=== PATIENT | female | born 1985 | race Caucasian/White ===

== ENCOUNTER 2017-03-13 23:47 | Emergency (ER) | payer OTHER ==
--- NOTE | 2017-03-14 02:40 | ED Physician Documentation ---
PD HPI DYSPNEA - Stated complaint Stated Complaint: SHORTNESS OF BREATH - Chief complaint Chief Complaint: General - History obtained from History obtained from: Patient - History of Present Illness Timing - onset: How many days ago (5) Timing - duration: Days (5) Timing - details: Gradual onset Associated symptoms: Fever (Tmax 102), Cough Recently seen: Not recently seen - Additional information Additional information: c/o 5 days of fever, chills, diaphoresis, cough, sore throat, sinus congestion Review of Systems Constitutional: reports: Fever, Chills, Sweats Throat: reports: Sore throat Cardiac: reports: Reviewed and negative Respiratory: reports: Dyspnea, Cough GI: reports: Reviewed and negative PD PAST MEDICAL HISTORY - Past Medical History Respiratory: Asthma - Past Surgical History Past Surgical History: No - Present Medications Home Medications: Ambulatory Orders Medication Instructions Recorded Confirmed Albuterol [Ventolin Hfa] 2 puffs INH Q8HR PRN 02/04/14 02/04/14 Fluticasone [Flonase] 2 sprays OWEN DAILY #0 bottle 02/04/14 Sertraline HCl [Zoloft] 50 mg PO DAILY #30 tablet 02/04/14 - Allergies Allergies/Adverse Reactions: Allergies Allergy/AdvReac Type Severity Reaction Status Date / Time amoxicillin [Amoxicillin] AdvReac Unknown Unknown Verified 02/04/14 17:11 Latex, Natural Rubber AdvReac Unknown Unknown Verified 02/04/14 17:11 Penicillins AdvReac Unknown Unknown Verified 02/04/14 17:11 - Social History Does the pt smoke?: No Smoking Status: Never smoker Does the pt drink ETOH?: No Does the pt have substance abuse?: No - Immunizations Immunizations are current?: Yes - POLST Patient has POLST: No PD ED PE NORMAL - Vitals Vital signs reviewed: Yes - General General: Alert and oriented X 3, No acute distress, Well developed/nourished - HEENT HEENT: Moist mucous membranes PD ED PE EXPANDED - HEENT HEENT: Pharyngeal erythema, Tonsillar exudate (despite h/o T+A, there appears to be large amount of left tonsillar tissue and this is erythematous with exudate) Results - Vitals Vitals: Oxygen O2 Source Room air - Labs Labs: Laboratory Tests 03/14/17 02:59 Group A Strep Rapid Negative - Rads (name of study) chest xray Radiology: Prelim report reviewed, See rad report PD MEDICAL DECISION MAKING - ED course Complexity details: reviewed results, re-evaluated patient, considered differential, d/w patient Departure - Departure Disposition: 01 Home, Self Care Clinical Impression: Bronchitis Pharyngitis Qualifiers: Pharyngitis/tonsillitis etiology: unspecified etiology Qualified Code(s): J02.9 - Acute pharyngitis, unspecified Condition: Good Instructions: ED Bronchitis Asthmatic, ED Pharyngitis Viral Report Pending Follow-Up: [facility] [Provider Group] [facility] [Provider Group] Discharge Date/Time: 03/14/17 05:15
[2017-03-14] MEDS ORDERED: ALBUTEROL NEB 2.5 MG/3 ML INH STA (02:59)
[2017-03-14] MEDS ORDERED: ALBUTEROL NEB 2.5 MG/3 ML INH ONE (03:05)
[2017-03-14 03:17] LABS: RAPID STREP SCREEN REAGENT QC YELLOW (YELLOW)
[2017-03-14] MEDS ORDERED: DEXAMETHASONE 10 MG/ML VIAL PO STA (03:21)
[2017-03-14] MEDS ORDERED: DEXAMETHASONE 10 MG/ML VIAL ONE (03:24)
[2017-03-14] MEDS ORDERED: CHERRY SYRUP 10 ML UDC PO ONE (03:24)
[2017-03-14] MEDS ORDERED: IBUPROFEN 800 MG TABLET PO STA (03:56)
[2017-03-14] MEDS ORDERED: IBUPROFEN 800 MG TABLET PO ONE (04:11)
--- NOTE | 2017-03-14 04:17 | XRAY Preliminary Report ---
Exam: XR Chest 2 View PA/LAT IMPRESSION: 1. No acute abnormality seen in the chest. [facility] SITE ID: [id number]
--- NOTE | 2017-03-14 04:20 | XRAY Report ---
EXAM: CHEST RADIOGRAPHY EXAM DATE: 03/14/2017 04:01 AM. CLINICAL HISTORY: Cough, dyspnea. COMPARISON: None. TECHNIQUE: 2 views. FINDINGS: Lungs/Pleura: No focal opacities evident. No pleural effusion. No pneumothorax. Normal volumes. Mediastinum: Heart and mediastinal contours are unremarkable. Other: None. IMPRESSION: 1. No acute abnormality seen in the chest. [facility] Referring Provider Line: [phone] SITE ID: [id number]
[2017-03-14] MEDS ORDERED: ALBUTEROL 8 GM INHALER INH STA (04:59)
[2017-03-14] MEDS ORDERED: ALBUTEROL 8 GM INHALER INH ONE (05:08)
[2017-03-14 05:12] VITALS: BP 128/80
== END 2017-03-14 05:15 | disposition home or self-care (01) ==
LOC: ED 23:47
DX: J40 Bronchitis, not specified as acute or chronic (principal); J02.9 Acute pharyngitis, unspecified
CPT/HCPCS: 71020; 87070; 87430; 94640; 94664; 99283; A9270; J7613

== ENCOUNTER 2017-03-21 21:39 | Emergency (ER) | payer OTHER ==
[2017-03-21] MEDS ORDERED: DOXYCYCLINE 100 MG TABLET PO STA (22:13)
[2017-03-21] MEDS ORDERED: ALBUTEROL NEB 2.5 MG/3 ML INH STA (22:13)
[2017-03-21] MEDS ORDERED: DEXAMETHASONE 10 MG/ML VIAL PO STA (22:13)
[2017-03-21] MEDS ORDERED: ALBUTEROL NEB 2.5 MG/3 ML INH ONE (22:18)
--- NOTE | 2017-03-21 22:20 | ED Physician Documentation ---
PD HPI HEENT - Stated complaint Stated Complaint: R EAR PX - Chief complaint Chief Complaint: Heent - History obtained from History obtained from: Patient - History of Present Illness Timing - onset: Other (2 weeks increased wheezing with URI sx and cough, had increasing R ear pain and severe pain in R ear after a pop tonight without drainage but with decreased hearing.) Review of Systems Constitutional: denies: Fever, Chills Throat: denies: Dental pain / toothache, Sore throat Cardiac: denies: Chest pain / pressure, Palpitations PD PAST MEDICAL HISTORY - Past Medical History Past Medical History: No Respiratory: Asthma - Past Surgical History Past Surgical History: No - Present Medications Home Medications: Ambulatory Orders Medication Instructions Recorded Confirmed Albuterol [Ventolin Hfa] 2 puffs INH Q8HR PRN 02/04/14 02/04/14 Fluticasone [Flonase] 2 sprays OWEN DAILY #0 bottle 02/04/14 Sertraline HCl [Zoloft] 50 mg PO DAILY #30 tablet 02/04/14 Doxycycline Hyclate 100 mg PO BID #20 tablet 03/21/17 - Allergies Allergies/Adverse Reactions: Allergies Allergy/AdvReac Type Severity Reaction Status Date / Time amoxicillin [Amoxicillin] AdvReac Unknown Unknown Verified 03/21/17 21:44 Latex, Natural Rubber AdvReac Unknown Unknown Verified 03/21/17 21:44 Penicillins AdvReac Unknown Unknown Verified 03/21/17 21:44 - Social History Does the pt smoke?: No Smoking Status: Never smoker Does the pt drink ETOH?: No Does the pt have substance abuse?: No - Immunizations Immunizations are current?: Yes - POLST Patient has POLST: No PD ED PE NORMAL - Vitals Vital signs reviewed: Yes - General General: Alert and oriented X 3, No acute distress - HEENT HEENT: Pharynx benign, Other (ROM but no obvious perf) - Neck Neck: Supple, no meningeal sign, No bony TTP - Cardiac Cardiac: RRR, No murmur - Respiratory Respiratory: Other (mildly diminished and exp wheezes) - Abdomen Abdomen: Non tender - Derm Derm: Normal color - Extremities Extremities: No edema, No calf tenderness / cord - Neuro Neuro: Alert and oriented X 3 - Psych Psych: Normal mood, Normal affect Results - Vitals Vitals: Vital Signs - 24 hr 03/21/17 21:44 Temperature 37.3 C Heart Rate 95 Respiratory 16 Rate Blood Pressure 127/90 H O2 Saturation 100 Oxygen O2 Source Room air Departure - Departure Disposition: 01 Home, Self Care Clinical Impression: ROM (right otitis media) Qualifiers: Otitis media type: suppurative Chronicity: acute Recurrence: not specified as recurrent Spontaneous tympanic membrane rupture: without spontaneous rupture Qualified Code(s): H66.001 - Acute suppurative otitis media without spontaneous rupture of ear drum, right ear Condition: Good Record reviewed to determine appropriate education?: Yes Instructions: ED Otitis Media Acute Adult Prescriptions: Doxycycline Hyclate 100 mg PO BID #20 tablet Comments: Call your doctor to arrange a follow up appointment. Make the next available appointment. In the interim return anytime if worse or if new symptoms develop. Your blood pressure was elevated today on check in to the emergency department. This does not mean that you have hypertension, it is a common phenomenon to check into the emergency department and have elevated blood pressure. I recommend that you see your primary care physician within the week to have it rechecked when you're feeling better.
[2017-03-21] MEDS ORDERED: DEXAMETHASONE 10 MG/ML VIAL ONE (22:25)
[2017-03-21] MEDS ORDERED: CHERRY SYRUP 10 ML UDC PO ONE (22:25)
[2017-03-21] MEDS ORDERED: DOXYCYCLINE 100 MG TABLET PO ONE (22:25)
[2017-03-21 22:57] VITALS: BP 127/84
== END 2017-03-21 22:58 | disposition home or self-care (01) ==
LOC: ED 21:39
DX: H66.001 Acute suppurative otitis media without spontaneous rupture of ear drum, right ear (principal); R03.0 Elevated blood-pressure reading, without diagnosis of hypertension
CPT/HCPCS: 94640; 99283; A9270; J7613

== ENCOUNTER 2017-05-13 20:11 | Emergency (ER) | payer OTHER ==
[2017-05-13 20:33] VITALS: BP 110/81
[2017-05-13] MEDS ORDERED: BACITRACIN OINT TOP STA (20:58)
[2017-05-13] MEDS ORDERED: BACITRACIN OINT TOP ONE (21:13)
--- NOTE | 2017-05-13 21:47 | ED Physician Documentation ---
PD HPI Fall - Stated complaint Stated Complaint: L KNEE/ R ANKLE PX - Chief complaint Chief Complaint: Ext Problem - History obtained from History obtained from: Patient - History of Present Illness Mechanism of injury: Tripped Fall distance: Standing position Where injury occurred: Street Timing - onset: How many hours ago (1) Injury(ies) location: Right Lower Extremity, Left Lower Extremity Associated symptoms: No: LOC, Nausea / vomiting Similar symptoms before: Has not had sx before - Additional information Additional information: The patient is a 31-year-old female who fell on uneven pavement about one hour prior to arrival, twisting her right ankle. She presents now with pain at the lateral aspect of her right ankle. She also impacted her left knee, and reports wound to her knee. She denies any other injuries. She has been ambulatory since the incident occurred. Review of Systems Constitutional: denies: Fever Nose: denies: Congestion Respiratory: denies: Dyspnea GI: denies: Nausea, Vomiting Skin: reports: Laceration (s) Musculoskeletal: reports: Joint swelling (right ankle), Pain with weight bearing. denies: Back pain Neurologic: denies: Focal weakness, Numbness, Head injury PD PAST MEDICAL HISTORY - Past Medical History Respiratory: Asthma Endocrine/Autoimmune: None - Past Surgical History Past Surgical History: No - Present Medications Home Medications: Ambulatory Orders Medication Instructions Recorded Confirmed Albuterol [Ventolin Hfa] 2 puffs INH Q8HR PRN 02/04/14 02/04/14 Fluticasone [Flonase] 2 sprays OWEN DAILY #0 bottle 02/04/14 Sertraline HCl [Zoloft] 50 mg PO DAILY #30 tablet 02/04/14 Doxycycline Hyclate 100 mg PO BID #20 tablet 03/21/17 HYDROcod/ACETAM 5/325 [[place] 5/325] 1 - 2 ea PO Q6H PRN #15 tablet 05/13/17 - Allergies Allergies/Adverse Reactions: Allergies Allergy/AdvReac Type Severity Reaction Status Date / Time amoxicillin [Amoxicillin] AdvReac Unknown Unknown Verified 05/13/17 20:33 Latex, Natural Rubber AdvReac Unknown Unknown Verified 05/13/17 20:33 Penicillins AdvReac Unknown Unknown Verified 05/13/17 20:33 - Social History Does the pt smoke?: No Smoking Status: Never smoker Does the pt drink ETOH?: No Does the pt have substance abuse?: No - Immunizations Immunizations are current?: Yes - POLST Patient has POLST: No PD ED PE NORMAL - Vitals Vital signs reviewed: Yes (normal) - General General: Alert and oriented X 3, Well developed/nourished, Other (overweight) - HEENT HEENT: Atraumatic, EOMI - Neck Neck: No bony TTP - Cardiac Cardiac: RRR - Respiratory Respiratory: No respiratory distress - Abdomen Abdomen: Soft, Non tender - Back Back: No spinal TTP - Derm Derm: No rash - Extremities Extremities: No calf tenderness / cord, Other (There is tenderness to palpation over the posterior aspect of the right lateral malleolus. There is no tenderness at the posterior malleolus, medial malleolus, fifth metatarsal base, or the proximal fibula of the right lower extremity. Distal neurovascular is intact. At the infrapatellar aspect of the left knee is a 1.5 cm jagged laceration, with surrounding abrasions. She has full range of motion of the knee, and no ligamentous instability detected. Distal neurovascular is intact.) Results - Vitals Vitals: Oxygen O2 Source Room air - Rads (name of study) right ankle Radiology: Prelim report reviewed, EMP read contemporaneously, See rad report ( Lateral soft tissue swelling. No acute osseous abnormality.) Procedures - Laceration (location) left knee Length in cm: 1.5 Wound type: Irregular Neurovascular status: Sensory intact, Motor intact, Vascular intact Anesthesia: Marcaine 0.25% with epi Wound Preparation: Hibiclens Skin layer closure: Nylon, Interrupted, Size #-0 - enter number (5), Sutures - enter # (3) Other: Patient tolerated well, No complications, Neurovascular intact, Dressing applied, Tetanus UTD Complexity: Simple - Splint (location) right ankle Splint applied by: Tech Type of splint: Ankle airsplint Other: Patient tolerated well, No complications, Neurovascular intact, Crutches provided PD MEDICAL DECISION MAKING - ED course Complexity details: reviewed results, re-evaluated patient, considered differential, d/w patient, d/w family ED course: Patient's presentation is significant for right ankle sprain. X-ray reveals no evidence of fracture or dislocation. She also has a 1.5 cm laceration at the prepatellar aspect of the left knee. Treatment in the emergency department included administration of an ankle air splint. Crutches were dispensed. The wound was repaired with 5-0 nylon simple sutures after thorough cleaning. Antibiotic ointment and gauze dressing was applied. I discussed with her the expected course of healing, wound care and timing for suture removal, as well as potentially worrisome signs or symptoms that should prompt reevaluation in the emergency department. Departure - Departure Disposition: 01 Home, Self Care Clinical Impression: Ankle sprain Qualifiers: Encounter type: initial encounter Involved ligament of ankle: calcaneofibular ligament Laterality: left Qualified Code(s): S93.412A - Sprain of calcaneofibular ligament of left ankle, initial encounter Laceration of lower extremity Qualifiers: Encounter type: initial encounter Laterality: left Qualified Code(s): S81.812A - Laceration without foreign body, left lower leg, initial encounter Condition: Stable Instructions: ED Sprain Ankle W X Ray, ED Laceration Ext Sutr Stap Tape Follow-Up: Lani Vazquez PA-C [Primary Care Provider] - Prescriptions: HYDROcod/ACETAM 5/325 [[place] 5/325] 1 - 2 ea PO Q6H PRN #15 tablet PRN Reason: Pain Comments: 1. Keep your right foot elevated as much the time as possible. 2. Apply icepack to the sore area intermittently for the next 3 days. 3. You can use Tylenol or ibuprofen as needed for discomfort. 4. Keep the wound on the left knee clean, and apply antibiotic ointment daily. 5. Followup for suture removal in about 12 days. 6. Followup sooner if you develop any sign of infection, or otherwise worsening symptoms. Discharge Date/Time: 05/13/17 22:14
--- NOTE | 2017-05-13 21:50 | XRAY Preliminary Report ---
Exam: XR Ankle 3 View RT IMPRESSION: Lateral soft tissue swelling. No acute osseous abnormality. [facility] SITE ID: [id number]
--- NOTE | 2017-05-13 21:52 | XRAY Report ---
EXAM: RIGHT ANKLE RADIOGRAPHY EXAM DATE: 05/13/2017 09:29 PM. CLINICAL HISTORY: Right ankle injury. Fall. Pain. COMPARISON: None. TECHNIQUE: 3 views. FINDINGS: Bones: Normal. No fractures or bone lesions. Joints: Normal. No effusion. No subluxations. The ankle mortise is normally aligned. Soft Tissues: Lateral soft tissue swelling. IMPRESSION: Lateral soft tissue swelling. No acute osseous abnormality. [facility] Referring Provider Line: [phone] SITE ID: [id number]
== END 2017-05-13 22:14 | disposition home or self-care (01) ==
LOC: ED 20:11
DX: S93.411A Sprain of calcaneofibular ligament of right ankle, initial encounter (principal); S81.012A Laceration without foreign body, left knee, initial encounter; W01.0XXA Fall on same level from slipping, tripping and stumbling without subsequent striking against object, initial encounter; Y92.410 Unspecified street and highway as the place of occurrence of the external cause
CPT/HCPCS: 12001; 73610; 99283; A9270

== ENCOUNTER 2017-10-08 14:31 | Outpatient (CLI) | payer OTHER | END 2017-10-08 14:32 | disposition home or self-care (01) | LOC: SC 14:31 | PROVIDERS: ATTEND Internal Medicine Pulmonary Disease | DX: G47.10 Hypersomnia, unspecified (principal); R51 Headache; E66.01 Morbid (severe) obesity due to excess calories; Z68.42 Body mass index [BMI] 45.0-49.9, adult; G47.8 Other sleep disorders | CPT/HCPCS: 99203; 99212 ==

== ENCOUNTER 2017-11-24 19:27 | Outpatient (CLI) | payer OTHER | END 2017-11-24 19:28 | disposition home or self-care (01) | LOC: SC 19:27 | PROVIDERS: ATTEND Internal Medicine Pulmonary Disease | DX: G47.33 Obstructive sleep apnea (adult) (pediatric) (principal) | CPT/HCPCS: 95810 ==

== ENCOUNTER 2017-12-14 13:43 | Emergency (ER) | payer OTHER ==
--- NOTE | 2017-12-14 15:33 | ED Physician Documentation ---
History of Present Illness - Stated complaint Stated Complaint: FLU LIKE SX - Chief complaint Chief Complaint: General - History obtained from History obtained from: Patient - History of Present Illness Timing: How many hours ago (18) Pain level max: 0 Pain level now: 0 Improved by: nothing Worsened by: nothing - Additonal information Additional information: Patient is a 32-year-old female presents to the emergency department stating she has not been feeling well for the past 18 hours. Subjective fevers, muscle aches. Has been using her inhaler at home. She has had cough, rhinorrhea, congestion and sore throat. Denies any possibility of as she has had a hysterectomy. Review of Systems Constitutional: reports: Fever (subjective), Chills Nose: reports: Rhinorrhea / runny nose, Congestion Throat: reports: Sore throat Respiratory: reports: Cough GI: reports: Nausea, Diarrhea (once). denies: Abdominal Pain, Vomiting Skin: denies: Rash Musculoskeletal: denies: Neck pain, Back pain Neurologic: denies: Focal weakness, Numbness, Headache PD PAST MEDICAL HISTORY - Past Medical History Past Medical History: Yes Respiratory: Asthma Endocrine/Autoimmune: None Psych: Depression, Anxiety Other Past Medical History: PCOS - Past Surgical History Past Surgical History: No General: Cholecystectomy /[employer]: section, Tubal ligation, Hysterectomy, Oophrectomy HEENT: Tonsil/Adenoidectomy - Present Medications Home Medications: Ambulatory Orders Medication Instructions Recorded Confirmed Albuterol Sulf [Ventolin Hfa 1 - 2 puffs INH Q4HR PRN #1 inhaler 12/14/17 Inhaler] Benzonatate [Tessalon Perle] 100 - 200 mg PO TID PRN #30 capsule 12/14/17 Cetirizine HCl/Pseudoephedrine 1 each PO BID PRN #30 tab.er.12h 12/14/17 [Zyrtec-D Tablet] Citalopram [CeleXA] 10 mg PO ONCE 12/14/17 12/14/17 Ondansetron Odt [Zofran] 4 mg TL Q6H PRN #10 tablet 12/14/17 lamoTRIgine [LaMICtal] 200 mg PO DAILY 12/14/17 12/14/17 - Allergies Allergies/Adverse Reactions: Allergies Allergy/AdvReac Type Severity Reaction Status Date / Time amoxicillin [Amoxicillin] AdvReac Unknown Unknown Verified 12/14/17 13:48 Latex, Natural Rubber AdvReac Unknown Unknown Verified 12/14/17 13:48 Penicillins AdvReac Unknown Unknown Verified 12/14/17 13:48 - Social History Does the pt smoke?: No Smoking Status: Never smoker Does the pt drink ETOH?: No Does the pt have substance abuse?: No - Immunizations Immunizations are current?: Yes - POLST Patient has POLST: No PD ED PE NORMAL - Vitals Vital signs reviewed: Yes - General General: Alert and oriented X 3, No acute distress, Well developed/nourished - HEENT HEENT: PERRL, Ears normal, Moist mucous membranes, Pharynx benign - Neck Neck: Supple, no meningeal sign - Cardiac Cardiac: RRR, Strong equal pulses - Respiratory Respiratory: No respiratory distress, Other (wheezing B) - Abdomen Abdomen: Soft, Non tender, Non distended - Derm Derm: Warm and dry, No rash - Extremities Extremities: No edema, No calf tenderness / cord - Neuro Neuro: Alert and oriented X 3 - Psych Psych: Normal mood, Normal affect Results - Vitals Vitals: Vital Signs - 24 hr 12/14/17 12/14/17 13:46 16:58 Temperature 36.7 C 38.5 C H Heart Rate 111 H 107 H Respiratory 16 18 Rate Blood Pressure 131/92 H 102/61 O2 Saturation 96 95 Oxygen O2 Source Room air - Labs Labs: Laboratory Tests 12/14/17 15:30 Influenza A (Rapid) Negative Influenza B (Rapid) Negative Influenza Types A,B Ag - - Rads (name of study) cxr Radiology: Prelim report reviewed, EMP read contemporaneously, See rad report ( Normal 2-view chest radiography. ) PD MEDICAL DECISION MAKING - ED course Complexity details: reviewed results, re-evaluated patient, considered differential, d/w patient ED course: Patient is a 32-year-old female who presents to the emergency department what appears to be a viral syndrome. She is well-appearing, nontoxic. No acute findings on chest x-ray. Has an inhaler for home. She states she would need a refill. Will prescribe this for her. Also place her on cough medication and decongestants. Influenza is negative. Patient counseled regarding signs and symptoms for which I believe and urgent re-evaluation would be necessary. Patient with good understanding of and agreement to plan and is comfortable going home at this time This document was made in part using voice recognition software. While efforts are made to proofread this document, sound alike and grammatical errors may occur. Departure - Departure Disposition: 01 Home, Self Care Clinical Impression: Viral syndrome Condition: Good Instructions: ED Viral Syndrome Follow-Up: Lani Vazquez PA-C [Primary Care Provider] - Within 1 week (if not better) Prescriptions: Albuterol Sulf [Ventolin Hfa Inhaler] 1 - 2 puffs INH Q4HR PRN #1 inhaler PRN Reason: Shortness Of Air/Wheezing Benzonatate [Tessalon Perle] 100 - 200 mg PO TID PRN #30 capsule PRN Reason: Cough Cetirizine HCl/Pseudoephedrine [Zyrtec-D Tablet] 1 each PO BID PRN #30 tab.er.12h PRN Reason: Nasal Congestion Ondansetron Odt [Zofran] 4 mg TL Q6H PRN #10 tablet PRN Reason: Nausea / Vomiting Comments: Drink plenty of fluids and rest. Return if you worsen. This will likely last for 2 weeks. Discharge Date/Time: 12/14/17 16:58
--- NOTE | 2017-12-14 15:46 | XRAY Preliminary Report ---
Exam: XR CHEST 2 VIEW X-RAY IMPRESSION: Normal 2-view chest radiography. [facility] SITE ID: [id number]
--- NOTE | 2017-12-14 15:57 | XRAY Report ---
EXAM: CHEST RADIOGRAPHY EXAM DATE: 12/14/2017 03:38 PM. CLINICAL HISTORY: Fever, cough. COMPARISON: 03/14/2017. TECHNIQUE: 2 views. FINDINGS: Lungs/Pleura: No focal opacities evident. No pleural effusion. No pneumothorax. Normal volumes. Mediastinum: Heart and mediastinal contours are unremarkable. Other: None. IMPRESSION: Normal 2-view chest radiography. [facility] Referring Provider Line: [phone] SITE ID: [id number]
[2017-12-14 17:01] VITALS: BP 102/61
== END 2017-12-14 16:58 | disposition home or self-care (01) ==
LOC: ED 13:43
DX: B34.9 Viral infection, unspecified (principal); R05 Cough; R09.81 Nasal congestion
CPT/HCPCS: 71046; 87275; 87276; 99283

== ENCOUNTER 2017-12-18 10:29 | Outpatient (CLI) | payer OTHER | END 2017-12-18 10:30 | disposition home or self-care (01) | LOC: SC 10:29 | PROVIDERS: ATTEND Nurse Practitioner Family | DX: G47.33 Obstructive sleep apnea (adult) (pediatric) (principal) | CPT/HCPCS: 99212; 99214 ==

== ENCOUNTER 2018-03-07 10:18 | Outpatient (CLI) | payer OTHER | END 2018-03-07 10:19 | disposition home or self-care (01) | LOC: SC 10:18 | PROVIDERS: ATTEND Nurse Practitioner Family | DX: G47.33 Obstructive sleep apnea (adult) (pediatric) (principal) | CPT/HCPCS: 99212; 99214 ==

== ENCOUNTER 2018-06-12 15:19 | Outpatient (CLI) | payer OTHER | END 2018-06-12 15:20 | disposition home or self-care (01) | LOC: SC 15:19 | PROVIDERS: ATTEND Nurse Practitioner Family | DX: G47.33 Obstructive sleep apnea (adult) (pediatric) (principal) | CPT/HCPCS: 99212; 99214 ==

== ENCOUNTER 2018-08-15 14:55 | Outpatient (CLI) | payer OTHER | END 2018-08-15 14:56 | disposition home or self-care (01) | LOC: SC 14:55 | PROVIDERS: ATTEND Nurse Practitioner Family | DX: G47.33 Obstructive sleep apnea (adult) (pediatric) (principal) | CPT/HCPCS: 99212; 99214 ==

== ENCOUNTER 2018-10-15 16:00 | Outpatient (CLI) | payer OTHER | END 2018-10-15 16:01 | disposition home or self-care (01) | LOC: SC 16:00 | PROVIDERS: ATTEND Nurse Practitioner Family | DX: G47.33 Obstructive sleep apnea (adult) (pediatric) (principal) | CPT/HCPCS: 99212; 99214 ==

== ENCOUNTER 2018-11-28 10:50 | Outpatient (CLI) | payer OTHER | END 2018-11-28 10:51 | disposition home or self-care (01) | LOC: SC 10:50 | PROVIDERS: ATTEND Nurse Practitioner Family | DX: G47.33 Obstructive sleep apnea (adult) (pediatric) (principal) | CPT/HCPCS: 99212; 99214 ==

== ENCOUNTER 2019-01-09 10:54 | Outpatient (CLI) | payer OTHER | END 2019-01-09 10:55 | disposition home or self-care (01) | LOC: SC 10:54 | PROVIDERS: ATTEND Nurse Practitioner Family | DX: G47.33 Obstructive sleep apnea (adult) (pediatric) (principal) | CPT/HCPCS: 99212; 99213 ==

== ENCOUNTER 2019-03-14 14:37 | Emergency (ER) | payer OTHER ==
[2019-03-14 14:54] VITALS: BP 126/84
--- NOTE | 2019-03-14 15:18 | ED Physician Documentation ---
PD HPI LOWER EXT INJURY - Stated complaint Stated Complaint: R FOOT INJ - Chief complaint Chief Complaint: Ext Problem - History obtained from History obtained from: Patient, Family - History of Present Illness PD HPI LOW EXT INJURY LOCATION: Right, Ankle Type of injury: Twist Where injury occurred: Home Timing - onset: How many hours ago (1) Timing - duration: Hours (1) Timing - details: Abrupt onset Pain level max: 10 Pain level now: 10 Improved by: Rest, Ice, Immobilization Worsened by: Moving, Palpating Associated symptoms: Swelling Contributing factors: No: Anticoagulated, Prior ortho surgery Recently seen: Not recently seen Review of Systems Constitutional: denies: Fever, Chills GI: denies: Vomiting : denies: Now EGA Skin: denies: Rash Musculoskeletal: denies: Neck pain, Back pain PD PAST MEDICAL HISTORY - Past Medical History Past Medical History: Yes Respiratory: Asthma Endocrine/Autoimmune: None Psych: Depression, Anxiety - Past Surgical History Past Surgical History: No General: 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, Tubal ligation, Hysterectomy, Oophrectomy HEENT: Tonsil/Adenoidectomy - Present Medications Home Medications: Ambulatory Orders Medication Instructions Recorded Confirmed Albuterol Sulf [Ventolin Hfa 1 - 2 puffs INH Q4HR PRN #1 inhaler 12/14/17 Inhaler] Benzonatate [Tessalon Perle] 100 - 200 mg PO TID PRN #30 capsule 12/14/17 Cetirizine HCl/Pseudoephedrine 1 each PO BID PRN #30 tab.er.12h 12/14/17 [Zyrtec-D Tablet] Citalopram [CeleXA] 10 mg PO ONCE 12/14/17 12/14/17 Ondansetron Odt [Zofran] 4 mg TL Q6H PRN #10 tablet 12/14/17 lamoTRIgine [LaMICtal] 200 mg PO DAILY 12/14/17 12/14/17 Oxycodone HCl/Acetaminophen 1 - 2 each PO Q6H PRN #20 tablet 03/14/19 [Percocet 5-325 mg Tablet] - Allergies Allergies/Adverse Reactions: Allergies Allergy/AdvReac Type Severity Reaction Status Date / Time amoxicillin [Amoxicillin] AdvReac Unknown Unknown Verified 12/14/17 13:48 Latex, Natural Rubber AdvReac Unknown Unknown Verified 12/14/17 13:48 Penicillins AdvReac Unknown Unknown Verified 12/14/17 13:48 - Social History Does the pt smoke?: No Smoking Status: Never smoker Does the pt drink ETOH?: No Does the pt have substance abuse?: No - Immunizations Immunizations are current?: Yes - POLST Patient has POLST: No PD ED PE NORMAL - Vitals Vital signs reviewed: Yes - General General: Alert and oriented X 3, No acute distress - HEENT HEENT: Moist mucous membranes - Neck Neck: Supple, no meningeal sign - Cardiac Cardiac: RRR - Respiratory Respiratory: No respiratory distress, Clear bilaterally - Derm Derm: Warm and dry - Extremities Extremities: Other (Tender to palpation right distal fibula. Soft tissue swelling present neurovascular intact. Otherwise normal examination of the right foot and ankle.) - Neuro Neuro: Alert and oriented X 3 Results - Vitals Vitals: Vital Signs - 24 hr 03/14/19 14:52 Temperature 36.0 C L Heart Rate 79 Respiratory 18 Rate Blood Pressure 126/84 H O2 Saturation 98 Oxygen O2 Source Room air - Rads (name of study) Right ankle x-ray Radiology: Prelim report reviewed, EMP read contemporaneously, See rad report (Lucio A ankle injury. There is a small fracture through the distal fibula below the level of the syndesmosis. 2. No evidence of dislocation. ) Procedures - Splint (location) R ankle Splint applied by: Physician, Tech Type of splint: Fiberglass, Short leg, Posterior, Stirrup Other: Patient tolerated well, No complications, Neurovascular intact, Crutches provided PD MEDICAL DECISION MAKING - ED course Complexity details: reviewed results, re-evaluated patient, considered differential, d/w patient ED course: Patient with a Lucio a fracture of the distal fibula. Placed in a posterior splint with stirrup. Given crutches. Neurovascularly intact. Patient counseled regarding signs and symptoms for which I believe and urgent re- evaluation would be necessary. Patient with good understanding of and agreement to plan and is comfortable going home at this time This document was made in part using voice recognition software. While efforts are made to proofread this document, sound alike and grammatical errors may occur. Departure - Departure Disposition: 01 Home, Self Care Clinical Impression: Fracture of distal end of right fibula Qualifiers: Encounter type: initial encounter Fracture type: closed Fracture morphology: unspecified fracture morphology Qualified Code(s): S82.831A - Other fracture of upper and lower end of right fibula, initial encounter for closed fracture Condition: Good Instructions: ED Fx Lower Ext Follow-Up: GOGO ESPINOZA [Primary Care Provider] - [facility] [Provider Group] - Within 1 week Prescriptions: Oxycodone HCl/Acetaminophen [Percocet 5-325 mg Tablet] 1 - 2 each PO Q6H PRN #20 tablet PRN Reason: pain Comments: Follow-up with orthopedics in 1 week. Return if you worsen. Do not put any weight on the right lower extremity. Do not drink alcohol or drive while on narcotic pain medicine. Note that many narcotic pain relievers also contain tylenol/acetaminophen. Please ensure that your total dose of acetaminophen from all sources does not exceed 3 grams (3000mg) per day. You may constipated on this medication, take a stool softener such as "Colace" twice a day while you are on it. Also recommend a [id number] laxative such as senna or MiraLAX any day that you do not have a bowel movement. If you received narcotic pain medication in the emergency department, do not drive or operate machinery for the next 24 hours. Discharge Date/Time: 03/14/19 17:18
--- NOTE | 2019-03-14 15:39 | XRAY Report ---
Reason: right ankle injury Procedure Date: 03/14/2019 Accession Number: [id number] / [id number] Procedure: XR - Ankle 3 View RT CPT Code: FULL RESULT: EXAM: RIGHT ANKLE RADIOGRAPHY EXAM DATE: 03/14/2019 03:15 PM. CLINICAL HISTORY: Right ankle injury. COMPARISON: ANKLE 3 VIEW RT 05/13/2017 9:14 PM. TECHNIQUE: 3 views. FINDINGS: Bones: There is a small avulsion fracture through the tip of the distal fibula. Corticated bony foci at the anterior margin of the tibiotalar joint on lateral view probably represent accessory ossicles. Joints: No evidence of dislocation. Soft Tissues: There is diffuse soft tissue swelling. IMPRESSION: 1. Lucio A ankle injury. There is a small fracture through the distal fibula below the level of the syndesmosis. 2. No evidence of dislocation. RADIA
[2019-03-14] MEDS ORDERED: oxyCODONE 5 MG TABLET PO STA (16:03)
== END 2019-03-14 17:18 | disposition home or self-care (01) ==
LOC: ED 14:37
DX: S82.831A Other fracture of upper and lower end of right fibula, initial encounter for closed fracture (principal); X50.1XXA Overexertion from prolonged static or awkward postures, initial encounter; Y93.89 Activity, other specified; Y92.009 Unspecified place in unspecified non-institutional (private) residence as the place of occurrence of the external cause
CPT/HCPCS: 29515; 73610; 99283; A9270

== ENCOUNTER 2023-10-25 15:41 | Emergency (ER) | payer OTHER ==
--- NOTE | 2023-10-25 16:36 | XRAY Report ---
PROCEDURE: Chest 1V INDICATIONS: SOA/COUGHING TECHNIQUE: One view of the chest was acquired. COMPARISON: Chest radiograph on December 14, 2017. FINDINGS: Surgical changes and devices: None. Lungs and pleura: No pleural effusions or pneumothorax. Lungs are clear. Mediastinum: Mediastinal contours appear normal. Heart size is normal. Bones and chest wall: No suspicious bony lesions. Overlying soft tissues appear unremarkable. IMPRESSION: No acute cardiopulmonary process. Reviewed by: Bruno Salazar MD on 10/25/2023 4:34 PM PST Approved by: Bruno Salazar MD on 10/25/2023 4:34 PM PST Station ID: [id number]
[2023-10-25 17:14] LABS: B. PARAPERTUSSIS- RESP PCR PAN NOT DETECTED; B. PERTUSSIS- RESP PCR PANEL NOT DETECTED; C. PNEUMONIAE- RESP PCR PANEL NOT DETECTED; CORONAVIRUS 229E-RESP PCR NOT DETECTED; CORONAVIRUS HKU1-RESP PCR NOT DETECTED; CORONAVIRUS NL63-RESP PCR NOT DETECTED; CORONAVIRUS OC43-RESP PCR NOT DETECTED; HUMAN METAPNEUMOVIRUS NOT DETECTED; INFLUENZA A- RESP PCR PANEL NOT DETECTED; INFLUENZA B - RESP PCR PANEL NOT DETECTED; M. PNEUMONIAE- RESP PCR PANEL NOT DETECTED; PARAINFLUENZA VIRUS 1 NOT DETECTED; PARAINFLUENZA VIRUS 2 NOT DETECTED; PARAINFLUENZA VIRUS 3 NOT DETECTED; PARAINFLUENZA VIRUS 4 NOT DETECTED; RHINOVIRUS/ENTEROVIRUS NOT DETECTED; RSV- RESP PCR PANEL NOT DETECTED; SARS-CoV-2 -RESP PCR PANEL NOT DETECTED
--- NOTE | 2023-10-25 18:01 | ED Physician Documentation ---
PD HPI URI - Stated complaint Stated Complaint: SOA/LOW ENERGY - Chief complaint Chief Complaint: Resp - History obtained from History obtained from: Patient - History of Present Illness Timing - onset: How many weeks ago (over a week) Timing duration: Weeks (over a week, with persisting fevers, cough, dyspnea, and worsening wheezing/hoarseness.) Timing details: Gradual onset, Still present Associated symptoms: Fever, Sore throat, Dry cough, Dyspnea Contributing factors: COPD / asthma (has albuterol MDI at home.). 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, Tubal 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, Hysterectomy, Oophrectomy HEENT: Tonsil/Adenoidectomy - Present Medications Home Medications: Ambulatory Orders Medication Instructions Recorded Confirmed Albuterol Sulf [Ventolin Hfa 1 - 2 puffs INH Q4HR PRN #1 inhaler 12/14/17 Inhaler] Benzonatate [Tessalon Perle] 100 - 200 mg PO TID PRN #30 capsule 12/14/17 Cetirizine HCl/Pseudoephedrine 1 each PO BID PRN #30 tab.er.12h 12/14/17 [Zyrtec-D Tablet] Citalopram [CeleXA] 10 mg PO ONCE 12/14/17 12/14/17 Ondansetron Odt [Zofran] 4 mg TL Q6H PRN #10 tablet 12/14/17 lamoTRIgine [LaMICtal] 200 mg PO DAILY 12/14/17 12/14/17 Oxycodone HCl/Acetaminophen 1 - 2 each PO Q6H PRN #20 tablet 03/14/19 [Percocet 5-325 mg Tablet] Doxycycline Hyclate 100 mg PO BID 7 Days #12 cap 10/25/23 dexAMETHasone [Decadron] 4 mg PO DAILY #5 tablet 10/25/23 - Allergies Allergies/Adverse Reactions: Allergies Allergy/AdvReac Type Severity Reaction Status Date / Time amoxicillin [Amoxicillin] AdvReac Unknown Unknown Verified 10/25/23 16:06 Latex, Natural Rubber AdvReac Unknown Unknown Verified 10/25/23 16:06 Penicillins AdvReac Unknown Unknown Verified 10/25/23 16:06 - Social History Does the pt smoke?: No Smoking Status: Never smoker Does the pt drink ETOH?: No Does the pt have substance abuse?: No - Immunizations Immunizations are current?: Yes - POLST Patient has POLST: No PD ED PE NORMAL - Vitals Vital signs reviewed: Yes - General General: Alert and oriented X 3, Well developed/nourished - HEENT HEENT: Moist mucous membranes, Pharynx benign - Neck Neck: Supple, no meningeal sign, No adenopathy - Cardiac Cardiac: RRR, No murmur - Respiratory Respiratory: Clear bilaterally, Other (seems to have work of breathing with inspiratory stridorous sound at times. No oral swelling noted. Able to talk sentences, minimally hoarse voice. Hoarseness with coughing. No wheezing noted. Sweallowing secretions okay. No neck adenopathy noted. ) Results - Vitals Vitals: Oxygen O2 Source Room air - Labs Labs: Laboratory Tests 10/25/23 16:00 Nasal Adenovirus (PCR) NOT DETECTED Nasal B. parapertussis DNA (PCR) NOT DETECTED Nasal Coronavir 229E PCR NOT DETECTED Nasal Coronavir HKU1 PCR NOT DETECTED Nasal Coronavir NL63 PCR NOT DETECTED Nasal Coronavir OC43 PCR NOT DETECTED Nasal Enterovir/Rhinovir PCR NOT DETECTED Nasal Influenza B PCR NOT DETECTED Nasal Influenza A PCR NOT DETECTED Nasal Parainfluen 1 PCR NOT DETECTED Nasal Parainfluen 2 PCR NOT DETECTED Nasal Parainfluen 3 PCR NOT DETECTED Nasal Parainfluen 4 PCR NOT DETECTED Nasal RSV (PCR) NOT DETECTED Nasal B.pertussis DNA PCR NOT DETECTED Nasal C.pneumoniae (PCR) NOT DETECTED Jaguar Human Metapneumo PCR NOT DETECTED Nasal M.pneumoniae (PCR) NOT DETECTED Nasal SARS-CoV-2 (PCR) NOT DETECTED - Rads (name of study) chest xray Relevant Findings:: Prelim report reviewed (no acute cardiopulmonary process.), EMP independent interpretation of test (no infiltrates. ) PD Medical Decision Making - ED course Complexity details: reviewed results (chest xray without pneumonia. Resp viral panel negative. She has croupy, hoarse type symptoms. SOme stridorous mild sounds that stop when she is talking. I do not feel she has appearance of epiglottitis. Presume sound upper airway inflammation, and with the persistent cough, also consider bronchitis), considered differential (URI and bronchitis type symptoms, history of asthma, with wheezing the past week, worsening. h oarseness now too. ), d/w patient Departure - Departure Disposition: 01 Home, Self Care Clinical Impression: Exacerbation of asthma, Upper respiratory infection, Croupy cough Condition: Stable Record reviewed to determine appropriate education?: Yes Prescriptions: dexAMETHasone [Decadron] 4 mg PO DAILY #5 tablet Doxycycline Hyclate 100 mg PO BID 7 Days #12 cap Comments: Your chest x-ray is clear without any signs of pneumonia. Your respiratory viral panel is negative for the major viruses. Your cough does sound croupy like and that can be a virus not typically found on the respiratory viral test panel. Stay well-hydrated and continue usual medicines. We can add Decadron steroid daily for 5 more days and doxycycline antibiotic twice daily for concern of a secondary bacterial infection given your underlying asthma as well as immune compromise. Continue with your albuterol inhaler 2 puffs 3-4 times daily regularly for the next several days to week. Recheck if not improving well over the next few days. Return if worse. I sent your prescription to your preferred pharmacy, [facility]. Forms: PCP List Discharge Date/Time: 10/25/23 19:04
[2023-10-25] MEDS ORDERED: ALBUTEROL NEB 2.5 MG/3 ML INH STA (18:28)
[2023-10-25] MEDS ORDERED: DOXYCYCLINE 100 MG TABLET PO STA (18:28)
[2023-10-25] MEDS ORDERED: dexAMETHasone 4 MG TABLET PO STA (18:28)
[2023-10-25 18:45] VITALS: O2SAT 97
[2023-10-25 19:11] VITALS: BP 116/86
== END 2023-10-25 19:04 | disposition home or self-care (01) ==
LOC: ED 15:41
DX: J06.9 Acute upper respiratory infection, unspecified (principal); J45.901 Unspecified asthma with (acute) exacerbation
CPT/HCPCS: 71045; 87633; 94640; 94664; 99284; A9270; J8540